=== PATIENT | female | born 1970 | race Two or more races ===

== ENCOUNTER 2018-09-16 14:31 | Inpatient (IN) | payer OTHER ==
[2018-09-16 15:14] VITALS: BMI 36.9
--- NOTE | 2018-09-16 17:55 | HP ---
CIWA Score Nausea/Vomitin-Mild Nausea/No Vomiting Muscle Tremors: 6 Anxiety: 3 Agitation: 4-Moderately Restless Paroxysmal Sweats: 3 (Facial moisture) Orientation: 0-Oriented Tacttile Disturbances: 1-Very Mild Itch/Numbness Auditory Disturbances: 0-None Visual Disturbances: 0-None Headache: 2-Mild CIWA-Ar Total Score: 20 - Admission Criteria [facility]ASAS Guidelines: Admission for Medically Managed Detox: Requires at least one of the followin. CIWA greater than 12 2. Seizures within the past 24 hours 3. Delirium tremens within the past 24 hours 4. Hallucinations within the past 24 hours 5. Acute intervention needed for co occurring medical disorder 6. Acute intervention needed for co occurring psychiatric disorder 7. Severe withdrawal that cannot be handled at a lower level of care (continued vomiting, continued diarrhea, abnormal vital signs) requiring intravenous medication and/or fluids 8. Patient presents the following: CIWA greater than 12 Admission Criteria Met: Admission criteria met Admission ROS S - [facility] Chief Complaint: States having alcohol withdrawal. Allergies/Adverse Reactions: Allergies Allergy/AdvReac Type Severity Reaction Status Date / Time alcohol Allergy Intermediate Hives Verified 09/16/18 18:35 apple Allergy Verified 09/16/18 22:55 History of Present Illness: Hx alcohol use since age 15. Nicotine use since age 23. Hx seizure once in 2014. Multiple hx blackouts. Sexually active - LMP 1 week ago. Longest period of sobriety 4 - 8 weeks. Hx: HTN - not on medications at this time. Seen in [facility] ER earlier today for c/o chest pain and feeling ill. States EKG and bloods at AE were negative and she was recommended to seek detox. Hx Depression - states stopped bupropion 2 weeks ago. Denies thoughts of harming self or others. States "I feel lost" Hx; insomnia. Search Terms: Sheela Kong, 1970 Search Date: 09/16/2018 06:11:09 PM The Drug Utilization Report below displays all of the controlled substance prescriptions, if any, that your patient has filled in the last twelve months. The information displayed on this report is compiled from pharmacy submissions to the Department, and accurately reflects the information as submitted by the pharmacies. This report was requested by: Josselyn Sage | Reference #: [id number] There are no results for the search terms that you entered. Exam Limitations: No Limitations - Ebola screening Have you traveled outside of the country in the last 21 days: No (n) Have you had contact with anyone from an Ebola affected area: No Have you been sick,other than usual withdrawal symptoms: No Do you have a fever: No - Review of Systems Constitutional: Diaphoresis, Changes in sleep (Difficulty falling asleep) EENT: reports: Blurred Vision, Other (Clear nasal discharge) Respiratory: reports: No Symptoms reported Cardiac: reports: No Symptoms Reported GI: reports: Diarrhea (brownish/watery), Nausea : reports: No Symptoms Reported Musculoskeletal: reports: Back Pain (Chronic achy - "9" worse w/ moving too much. Better w/ medication.), Other (Generalized arm and leg pain. - takes Advil or Tyleno PM) Integumentary: reports: Pruritus (c/o itching sensation underneath skin r/t alcohol use.) Neuro: reports: Headache, Tremors Endocrine: reports: No Symptoms Reported Hematology: reports: No Symptoms Reported Psychiatric: reports: Judgement Intact, Agitated, Anxious, Depressed ("Feels lost" Denies thoughts of harming self or others.) Patient History - Patient Medical History Hx Anemia: No Hx Asthma: No Hx Chronic Obstructive Pulmonary Disease (COPD): No Hx Cancer: No Hx Cardiac Disorders: No Hx Congestive Heart Failure: No Hx Hypertension: Yes Hx Hypercholesterolemia: No Hx Pacemaker: No HX Cerebrovascular Accident: No Hx Seizures: No Hx Dementia: No Hx Diabetes: No Hx Gastrointestinal Disorders: No Hx Liver Disease: No Hx Genitourinary Disorders: No Hx Sexually Transmitted Disorders: No Hx Renal Disease (ESRD): No Hx Thyroid Disease: No Hx Human Immunodeficiency Virus (HIV): No Hx Hepatitis C: No Hx Depression: Yes Hx Suicide Attempt: No Hx Bipolar Disorder: No Hx Schizophrenia: No - Patient Surgical History Past Surgical History: Yes Hx Neurologic Surgery: No Hx Cataract Extraction: No Hx Cardiac Surgery: No Hx Lung Surgery: No Hx Breast Surgery: Yes (BREAST REDUCTION) Hx Breast Biopsy: No Hx Abdominal Surgery: No Hx Appendectomy: No Hx Cholecystectomy: No Hx Genitourinary Surgery: No Hx Section: Yes (2 C-SECTIONS) Hx Orthopedic Surgery: Yes (TONSILLECTOMY) Hx Hysterectomy: No Anesthesia Reaction: No - PPD History Previous Implant?: Yes Implanted On Prior [facility] Admission?: Yes Date: 05/07/18 PPD to be Administered?: No - Reproductive History Patient is a Female of Child Bearing Age (11 -55 yrs old): Yes Last Menstrual Period: 04/19/18 - Smoking Cessation Smoking history: Current some day smoker Have you smoked in the past 12 months: Yes Aproximately how many cigarettes per day: 5 Hx Chewing Tobacco Use: No Initiated information on smoking cessation: Yes 'Breaking Loose' booklet given: 09/16/18 - Substance & Tx. History Hx Alcohol Use: Yes Hx Substance Use: Yes Substance Use Type: Alcohol Hx Substance Use Treatment: Yes (detox, rehab) - Substances Abused Alcohol Route: Oral Frequency: Daily Amount used: "A LOT" Age of first use: 15 Date of Last Use: 09/16/18 Family Disease History - Family Disease History Family Disease History: Other: Father (alcoholism, alive), Mother (thyroid, alive) Admission Physical Exam [facility] - Vital Signs Vital Signs: Vital Signs - 24 hr 09/16/18 15:11 Temperature 97.9 F Pulse Rate 87 Respiratory 20 Rate Blood Pressure 149/72 - Physical General Appearance: Yes: Moderate Distress, Tremorous, Sweating, Anxious HEENTM: Yes: EOMI, Hearing grossly Normal, SKYE, Rhinorrhea (Clear nasal discharge) Respiratory: Yes: Lungs Clear, Normal Breath Sounds, No Respiratory Distress Neck: Yes: No masses,lesions,Nodules, Supple Breast: Yes: Breast Exam Deferred Cardiology: Yes: Regular Rhythm, Regular Rate, S1, S2 Abdominal: Yes: Non Tender, Soft, Increased Bowel Sounds, Protuberent ( Increased abdominal aadiposity. LUQ tenderness upon deep palpation. No guarding. No rebound tenderness.) Back: Yes: Normal Inspection Musculoskeletal: Yes: full range of Motion, Gait Steady Extremities: Yes: Normal Capillary Refill, Normal Range of Motion, Tremors ( Tremors of hands at rest and increase grossly when arms elevated.) Neurological: Yes: product accountant II-XII NML intact, Fully Oriented, Alert, Motor Strength 5/5, Normal Mood/Affect, Normal Response Integumentary: Yes: Normal Color, Diaphoresis Lymphatic: Yes: Within Normal Limits - Diagnostic (1) Alcohol dependence with uncomplicated withdrawal Current Visit: Yes Status: Acute (2) Essential hypertension Current Visit: Yes Status: Chronic (3) Cigarette nicotine dependence, uncomplicated Current Visit: Yes Status: Chronic Cleared for Admission [facility] - Detox or Rehab [facility] Level of Care: Medically Managed Detox Regimen/Protocol: Librium [facility] Breath Alcohol Content Breath Alcohol Content: 0.059 Urine Pregancy Test - Result Urine Test Results: Negative- NO Line Present Urine Drug Screen - Results Drug Screen Negative: No Urine Drug Screen Results: BAR-Barbiturates
[2018-09-16] MEDS ORDERED: MAGNESIUM CITRATE 300 ML BOTTLE PO PRN (18:24)
[2018-09-16] MEDS ORDERED: MAGNESIUM HYDROX 2400MG/30ML ORAL SUSPENSION 30 ML CUP PO PRN (18:24)
[2018-09-16] MEDS ORDERED: MENTHOL/PHENOL 1 EACH UD MM PRN (18:24)
[2018-09-16] MEDS ORDERED: chlordiazePOXIDE HCL 25 MG CAPSULE PO PRN (18:24)
[2018-09-16] MEDS ORDERED: IBUPROFEN 400 MG TABLET (FP) PO PRN (18:24)
[2018-09-16] MEDS ORDERED: LOPERAMIDE HCL 2 MG CAPSULE PO PRN (18:24)
[2018-09-16] MEDS ORDERED: MAG HYDROX/AL HYDROX/SIMETH 30 ML UNIT-DOSE CUP PO PRN (18:24)
[2018-09-16] MEDS ORDERED: NICOTINE POLACRILEX 2 MG GUM BUC PRN (18:24)
[2018-09-16] MEDS ORDERED: P-EPHED 60MG/TRIPROLIDI 2.5MG TABLET PO PRN (18:24)
[2018-09-16] MEDS ORDERED: chlordiazePOXIDE HCL 25 MG CAPSULE PO ONE (18:30)
[2018-09-16] MEDS ORDERED: MELATONIN 5 MG TABLETS PO PRN (22:00)
[2018-09-16] MEDS: chlordiazePOXIDE HCL 25 MG CAPSULE PO SCH (22:11)
[2018-09-16] MEDS: THIAMINE HCL 100 MG TABLET (FP) PO SCH (22:13)
[2018-09-16] MEDS: hydrOXYzine PAMOATE 25 MG CAPSULE (FP) PO PRN (22:52)
[2018-09-17 02:19] LABS: URINE APPEARANCE CLOUDY; URINE BILIRUBIN NEGATIVE (<2.0 mg/dL); URINE COLOR DKYELLOW; URINE GLUCOSE (UA) NEGATIVE (NEGATIVE); URINE KETONE TRACE (NEGATIVE); URINE LEUK ESTERASE NEGATIVE (NEGATIVE); URINE NITRITE NEGATIVE (NEGATIVE); URINE PROTEIN 1+ (NEGATIVE); URINE UROBILINOGEN NEGATIVE mg/dL (0.2-1.0)
[2018-09-17 02:28] LABS: EPI CELLS MODERATE /HPF (FEW); URINE BACTERIA FEW /hpf (NONE SEEN); URINE MUCUS MANY
[2018-09-17] MEDS: chlordiazePOXIDE HCL 25 MG CAPSULE PO SCH ×4 (05:43→22:25)
[2018-09-17] MEDS: ACETAMINOPHEN 325 MG TABLET (FP) PO PRN (05:44)
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
[2018-09-17] MEDS: NICOTINE 7 MG/24 HOURS TOPICAL PATCH TD SCH (10:18)
[2018-09-17] MEDS: PRENATAL VITAMINS W/ FOLIC ACID TABLET (FP) PO SCH (10:18)
[2018-09-17] MEDS ORDERED: COLLOIDAL OATMEAL 1 BAR EACH TP PRN (10:19)
[2018-09-17 10:41] LABS: HEMATOCRIT 36.4 % (32.4-45.2); HEMOGLOBIN 10.8 GM/dL (10.7-15.3); MCHC 29.6 g/dl (32.0-36.0); MEAN CELL VOLUME 61.5 fl (80-96); PLATELET COUNT 115 K/MM3 (134-434); RBC 5.92 M/mm3 (3.60-5.2); WHITE BLOOD COUNT 5.2 K/mm3 (4.0-10.0)
[2018-09-17 10:46] LABS: ALBUMIN 3.1 g/dl (3.4-5.0); ALK PHOS 88 U/L (45-117); ANION GAP 10 MMOL/L (8-16); BILIRUBIN,TOTAL 0.9 mg/dL (0.2-1); BLOOD UREA NITROGEN 5 mg/dL (7-18); CALCIUM 8.3 mg/dL (8.5-10.1); CHLORIDE 99 mmol/L (98-107); CO2 29 mmol/L (21-32); CREATININE 0.5 mg/dL (0.55-1.3); GLUCOSE,RANDOM 89 mg/dL (74-106); POTASSIUM 3.1 mmol/L (3.5-5.1); SGOT/AST 35 U/L (15-37); SGPT/ALT 28 U/L (13-61); SODIUM 137 mmol/L (136-145); TOT PROT 6.4 g/dl (6.4-8.2)
[2018-09-17 11:28] LABS: MCH 18.2 pg (25.7-33.7)
[2018-09-17] MEDS ORDERED: POTASSIUM CHLORIDE TABS 20 MEQ TABLET.ER (FP) PO ONE (15:58)
--- NOTE | 2018-09-17 15:59 | PN ---
[facility] CIWA - CIWA Score Nausea/Vomitin-Mild Nausea/No Vomiting Muscle Tremors: 4-Moderate,w/Arms Extend Anxiety: 4-Mod. Anxious/Guarded Agitation: 4-Moderately Restless Paroxysmal Sweats: 1-Minimal Palms Moist Orientation: 1-Uncertain about Date Tacttile Disturbances: 0-None Auditory Disturbances: 0-None Visual Disturbances: 0-None Headache: 1-Very Mild CIWA-Ar Total Score: 16 [facility] Progress Note (SOAP) Subjective: tremor sweat anxiety restlessness trouble sleep at night Objective: 09/17/18 16:00 Vital Signs Temperature 98.3 F 09/17/18 14:14 Pulse Rate 86 09/17/18 14:14 Respiratory Rate 18 09/17/18 14:14 Blood Pressure 145/54 L 09/17/18 14:14 O2 Sat by Pulse Oximetry (%) Laboratory Last Values WBC 5.2 K/mm3 (4.0-10.0) 09/17/18 07:10 RBC 5.92 M/mm3 (3.60-5.2) H 09/17/18 07:10 Hgb 10.8 GM/dL (10.7-15.3) 09/17/18 07:10 Hct 36.4 % (32.4-45.2) 09/17/18 07:10 MCV 61.5 fl (80-96) L 09/17/18 07:10 MCH 18.2 pg (25.7-33.7) L 09/17/18 07:10 MCHC 29.6 g/dl (32.0-36.0) L 09/17/18 07:10 RDW 23.0 % (11.6-15.6) H 09/17/18 07:10 Plt Count 115 K/MM3 (134-434) L D 09/17/18 07:10 MPV 9.0 fl (7.5-11.1) 09/17/18 07:10 Platelet Comment No clumping noted 09/17/18 07:10 Sodium 137 mmol/L (136-145) 09/17/18 07:10 Potassium 3.1 mmol/L (3.5-5.1) L 09/17/18 07:10 Chloride 99 mmol/L (98-107) 09/17/18 07:10 Carbon Dioxide 29 mmol/L (21-32) 09/17/18 07:10 Anion Gap 10 MMOL/L (8-16) 09/17/18 07:10 BUN 5 mg/dL (7-18) L 09/17/18 07:10 Creatinine 0.5 mg/dL (0.55-1.3) L 09/17/18 07:10 Creat Clearance w eGFR > 60 (>60) 09/17/18 07:10 Random Glucose 89 mg/dL (74-106) 09/17/18 07:10 Calcium 8.3 mg/dL (8.5-10.1) L 09/17/18 07:10 Total Bilirubin 0.9 mg/dL (0.2-1) 09/17/18 07:10 AST 35 U/L (15-37) 09/17/18 07:10 ALT 28 U/L (13-61) 09/17/18 07:10 Alkaline Phosphatase 88 U/L (45-117) 09/17/18 07:10 Total Protein 6.4 g/dl (6.4-8.2) 09/17/18 07:10 Albumin 3.1 g/dl (3.4-5.0) L 09/17/18 07:10 Urine Color Dkyellow 09/17/18 01:00 Urine Appearance Cloudy 09/17/18 01:00 Urine pH 5.0 (5.0-8.0) 09/17/18 01:00 Ur Specific [place] 1.026 (1.010-1.035) 09/17/18 01:00 Urine Protein 1+ (NEGATIVE) H 09/17/18 01:00 Urine Glucose (UA) Negative (NEGATIVE) 09/17/18 01:00 Urine Ketones Trace (NEGATIVE) H 09/17/18 01:00 Urine Blood Negative (NEGATIVE) 09/17/18 01:00 Urine Nitrite Negative (NEGATIVE) 09/17/18 01:00 Urine Bilirubin Negative (<2.0 mg/dL) 09/17/18 01:00 Urine Urobilinogen Negative mg/dL (0.2-1.0) 09/17/18 01:00 Ur Leukocyte Esterase Negative (NEGATIVE) 09/17/18 01:00 Urine WBC (Auto) 3 /hpf (3-5) 09/17/18 01:00 Urine RBC (Auto) 3 /hpf (0-3) 09/17/18 01:00 Ur Epithelial Cells Moderate /HPF (FEW) 09/17/18 01:00 Urine Bacteria Few /hpf (NONE SEEN) 09/17/18 01:00 Urine Mucus Many 09/17/18 01:00 RPR Titer Nonreactive (NONREACTIVE) 09/17/18 07:10 lab noted discontinue motrin low K+ Assessment: 09/17/18 16:02 withdrawal sx low K+ low Platelate Plan: continue detox potassium supplement repeat ua
[2018-09-17] MEDS: THIAMINE HCL 100 MG TABLET (FP) PO SCH (22:24)
[2018-09-17] MEDS: POTASSIUM CHLORIDE TABS 20 MEQ TABLET.ER (FP) PO SCH (22:25)
[2018-09-17] MEDS: SUVOREXANT 10 MG TABLET PO PRN (22:30)
[2018-09-18] MEDS: chlordiazePOXIDE HCL 25 MG CAPSULE PO SCH ×3 (06:07→18:01)
[2018-09-18] MEDS: PRENATAL VITAMINS W/ FOLIC ACID TABLET (FP) PO SCH (10:08)
[2018-09-18] MEDS: POTASSIUM CHLORIDE TABS 20 MEQ TABLET.ER (FP) PO SCH ×2 (10:08→22:22)
[2018-09-18] MEDS: NICOTINE 7 MG/24 HOURS TOPICAL PATCH TD SCH (10:09)
[2018-09-18] MEDS: ACETAMINOPHEN 325 MG TABLET (FP) PO PRN (10:09)
[2018-09-18 10:28] LABS: URINE APPEARANCE CLEAR; URINE BILIRUBIN NEGATIVE (<2.0 mg/dL); URINE COLOR LTYELLOW; URINE GLUCOSE (UA) NEGATIVE (NEGATIVE); URINE KETONE NEGATIVE (NEGATIVE); URINE LEUK ESTERASE NEGATIVE (NEGATIVE); URINE NITRITE NEGATIVE (NEGATIVE); URINE PROTEIN NEGATIVE (NEGATIVE); URINE UROBILINOGEN NEGATIVE mg/dL (0.2-1.0)
--- NOTE | 2018-09-18 10:34 | PN ---
[facility] CIWA - CIWA Score Nausea/Vomitin-No Nausea/No Vomiting Muscle Tremors: 4-Moderate,w/Arms Extend Anxiety: 3 Agitation: 3 Paroxysmal Sweats: 2 Orientation: 0-Oriented Tacttile Disturbances: 0-None Auditory Disturbances: 0-None Visual Disturbances: 0-None Headache: 0-None Present CIWA-Ar Total Score: 12 S Progress Note (SOAP) Subjective: sweats anxiety interrupted sleep Objective: 09/18/18 10:34 Vital Signs Temperature 97.3 F L 09/18/18 08:10 Pulse Rate 105 H 09/18/18 09:13 Respiratory Rate 18 09/18/18 09:13 Blood Pressure 114/65 09/18/18 09:13 O2 Sat by Pulse Oximetry (%) Laboratory Tests 09/17/18 09/17/18 09/17/18 01:00 07:10 07:10 WBC 5.2 RBC 5.92 H Hgb 10.8 Hct 36.4 MCV 61.5 L MCH 18.2 L MCHC 29.6 L RDW 23.0 H Plt Count 115 L D MPV 9.0 Platelet Comment No clumping noted Sodium 137 Potassium 3.1 L Chloride 99 Carbon Dioxide 29 Anion Gap 10 BUN 5 L Creatinine 0.5 L Creat Clearance w eGFR > 60 Random Glucose 89 Calcium 8.3 L Total Bilirubin 0.9 AST 35 ALT 28 Alkaline Phosphatase 88 Total Protein 6.4 Albumin 3.1 L Urine Color Dkyellow Urine Appearance Cloudy Urine pH 5.0 Ur Specific [place] 1.026 Urine Protein 1+ H Urine Glucose (UA) Negative Urine Ketones Trace H Urine Blood Negative Urine Nitrite Negative Urine Bilirubin Negative Urine Urobilinogen Negative Ur Leukocyte Esterase Negative Urine WBC (Auto) 3 Urine RBC (Auto) 3 Ur Epithelial Cells Moderate Urine Bacteria Few Urine Mucus Many RPR Titer 09/17/18 07:10 WBC RBC Hgb Hct MCV MCH MCHC RDW Plt Count MPV Platelet Comment Sodium Potassium Chloride Carbon Dioxide Anion Gap BUN Creatinine Creat Clearance w eGFR Random Glucose Calcium Total Bilirubin AST ALT Alkaline Phosphatase Total Protein Albumin Urine Color Urine Appearance Urine pH Ur Specific [place] Urine Protein Urine Glucose (UA) Urine Ketones Urine Blood Urine Nitrite Urine Bilirubin Urine Urobilinogen Ur Leukocyte Esterase Urine WBC (Auto) Urine RBC (Auto) Ur Epithelial Cells Urine Bacteria Urine Mucus RPR Titer Nonreactive aaox3 ambulating no acute distress Assessment: 09/18/18 10:34 withdrawal sx Plan: continue detox increase fluids
[2018-09-18] MEDS: SUVOREXANT 10 MG TABLET PO PRN (22:22)
[2018-09-18] MEDS: chlordiazePOXIDE 5 MG CAPSULE PO SCH (22:22)
[2018-09-18] MEDS: THIAMINE HCL 100 MG TABLET (FP) PO SCH (22:23)
[2018-09-18] MEDS: hydrOXYzine PAMOATE 25 MG CAPSULE (FP) PO PRN (22:23)
[2018-09-19] MEDS: chlordiazePOXIDE 5 MG CAPSULE PO SCH ×2 (06:23→10:30)
[2018-09-19] MEDS: PRENATAL VITAMINS W/ FOLIC ACID TABLET (FP) PO SCH (10:30)
[2018-09-19] MEDS: NICOTINE 7 MG/24 HOURS TOPICAL PATCH TD SCH (10:30)
[2018-09-19] MEDS: POTASSIUM CHLORIDE TABS 20 MEQ TABLET.ER (FP) PO SCH (10:30)
--- NOTE | 2018-09-19 10:31 | PN ---
[facility] Progress Note (SOAP) Subjective: sweats interrupted sleep Objective: 09/19/18 10:30 Vital Signs Temperature 97.7 F 09/19/18 09:19 Pulse Rate 82 09/19/18 09:19 Respiratory Rate 18 09/19/18 09:19 Blood Pressure 143/70 09/19/18 09:19 O2 Sat by Pulse Oximetry (%) Laboratory Tests 09/17/18 09/17/18 09/17/18 01:00 07:10 07:10 WBC 5.2 RBC 5.92 H Hgb 10.8 Hct 36.4 MCV 61.5 L MCH 18.2 L MCHC 29.6 L RDW 23.0 H Plt Count 115 L D MPV 9.0 Platelet Comment No clumping noted Sodium 137 Potassium 3.1 L Chloride 99 Carbon Dioxide 29 Anion Gap 10 BUN 5 L Creatinine 0.5 L Creat Clearance w eGFR > 60 Random Glucose 89 Calcium 8.3 L Total Bilirubin 0.9 AST 35 ALT 28 Alkaline Phosphatase 88 Total Protein 6.4 Albumin 3.1 L Urine Color Dkyellow Urine Appearance Cloudy Urine pH 5.0 Ur Specific [place] 1.026 Urine Protein 1+ H Urine Glucose (UA) Negative Urine Ketones Trace H Urine Blood Negative Urine Nitrite Negative Urine Bilirubin Negative Urine Urobilinogen Negative Ur Leukocyte Esterase Negative Urine WBC (Auto) 3 Urine RBC (Auto) 3 Ur Epithelial Cells Moderate Urine Bacteria Few Urine Mucus Many RPR Titer 09/17/18 09/18/18 07:10 07:25 WBC RBC Hgb Hct MCV MCH MCHC RDW Plt Count MPV Platelet Comment Sodium Potassium Chloride Carbon Dioxide Anion Gap BUN Creatinine Creat Clearance w eGFR Random Glucose Calcium Total Bilirubin AST ALT Alkaline Phosphatase Total Protein Albumin Urine Color Ltyellow Urine Appearance Clear Urine pH 6.0 Ur Specific [place] 1.004 L Urine Protein Negative Urine Glucose (UA) Negative Urine Ketones Negative Urine Blood Negative Urine Nitrite Negative Urine Bilirubin Negative Urine Urobilinogen Negative Ur Leukocyte Esterase Negative Urine WBC (Auto) Urine RBC (Auto) Ur Epithelial Cells Urine Bacteria Urine Mucus RPR Titer Nonreactive aaox3 ambulating no acute distress Assessment: 09/19/18 10:30 withdrawal sx Plan: continue detox increase fluids d/c in am
[2018-09-19 17:26] VITALS: BP 126/71; PULSE 90; TEMP 99.1
[2018-09-19] MEDS ORDERED: chlordiazePOXIDE HCL 10 MG CAPSULE PO SCH (23:00)
== END 2018-09-19 17:38 | disposition home or self-care (01) | DRG 775 ==
LOC: YASAS 14:31 → Y6N 18:40
PROC: HZ2ZZZZ Detoxification Services for Substance Abuse Treatment (ICD-10-PCS; principal; 2018-09-16)
DX: F10.230 Alcohol dependence with withdrawal, uncomplicated (principal); F17.213 Nicotine dependence, cigarettes, with withdrawal; F10.24 Alcohol dependence with alcohol-induced mood disorder; F10.282 Alcohol dependence with alcohol-induced sleep disorder; F41.9 Anxiety disorder, unspecified; I10 Essential (primary) hypertension; G47.00 Insomnia, unspecified; E87.6 Hypokalemia; R45.89 Other symptoms and signs involving emotional state; Z86.69 Personal history of other diseases of the nervous system and sense organs
CPT/HCPCS: 36415; 80053; 81003; 81015; 85027; 86593